=== PATIENT | male | born 1970 | race Caucasian/White ===

== ENCOUNTER 2017-12-30 12:04 | Emergency (ER) | payer OTHER ==
[2017-12-30] MEDS ORDERED: SODIUM CHLORIDE 1,000 ML IV STA (12:18)
--- NOTE | 2017-12-30 12:18 | PDOC ---
History of Present Illness - General Chief Complaint: Wound Stated Complaint: CYST TO RIGHT UPPER BACK Time Seen by Provider: 12/30/17 12:06 - History of Present Illness Initial Comments: 12/30/17 12:13 47 M with no PMH presents to ED with 1 week of R upper back swelling and pain. Pt states that he has had a cyst in his R upper back for a long time. Over the past week, it began to get swollen and red. He was started on abx 6 days ago, which he has been taking. Pt cannot recall name of abx. However, he states that the swelling and pain have not subsided. Yesterday, he noted that it began to drain spontaneously, purulent material. Pt denies F/C. Denies h/o abscesses anywhere else on his body. Pt was seen in Dr. Franco's office today. However, pt was sent to ED to have the abscess drained. I spoke with Dr. Franco, who states that he has informed Dr. Shah of pt, and Dr. Shah will be coming to drain the abscess at bedside. Past History - Past Medical History Allergies/Adverse Reactions: Allergies Allergy/AdvReac Type Severity Reaction Status Date / Time amoxicillin [From Augmentin] Allergy Intermediate Vomiting Verified 12/30/17 12: 06 clavulanic acid Allergy Intermediate Vomiting Verified 12/30/17 12:06 [From Augmentin] Home Medications: Ambulatory Orders Sulfamethoxazole/Trimethoprim [Bactrim Ds -] 1 tab PO BID 12/30/17 Review of Systems - Review of Systems Comments:: 12/30/17 12:16 "GENERAL/CONSTITUTIONAL: No fever or chills. No weakness. HEAD, EYES, EARS, NOSE AND THROAT: No change in vision. No ear pain or discharge. No sore throat. CARDIOVASCULAR: No chest pain or shortness of breath. RESPIRATORY: No cough, wheezing, or hemoptysis. GASTROINTESTINAL: No nausea, vomiting, diarrhea or constipation. GENITOURINARY: No dysuria, frequency, or change in urination. MUSCULOSKELETAL: No joint or muscle swelling or pain. No neck or back pain. SKIN: + R upper back abscess NEUROLOGIC: No headache, vertigo, loss of consciousness, or change in strength/ sensation. ENDOCRINE: No increased thirst. No abnormal weight change. HEMATOLOGIC/LYMPHATIC: No anemia, easy bleeding, or history of blood clots. ALLERGIC/IMMUNOLOGIC: No hives or skin allergy. " *Physical Exam - Physical Exam Comments: 12/30/17 12:16 "GENERAL: Awake, alert, and fully oriented, in no acute distress HEAD: No signs of trauma EYES: PERRLA, EOMI, sclera anicteric, conjunctiva clear ENT: Auricles normal inspection, hearing grossly normal, nares patent, oropharynx clear without exudates. Moist mucosa NECK: Nontender, no stepoffs, Normal ROM, supple, no lymphadenopathy, JVD, or masses LUNGS: Breath sounds equal, clear to auscultation bilaterally. No wheezes, and no crackles HEART: Regular rate and rhythm, normal S1 and S2, no murmurs, rubs or gallops ABDOMEN: Soft, nontender, normoactive bowel sounds. No guarding, no rebound. No masses EXTREMITIES: Normal range of motion, no edema. No clubbing or cyanosis. No cords, erythema, or tenderness NEUROLOGICAL: Cranial nerves II through XII intact. 5/5 strength and sensation in all extremities, Normal speech, normal gait, normal cerebellar function SKIN: R upper back with 4cm area of induration and fluctuance with surrounding erythema, small amount of purulent drainage expressed from center " Medical Decision Making - Medical Decision Making 12/30/17 12:17 47 M with infected cyst to R upper back. No s/s systemic illness or bacteremia. - Dr. Shah notified by Dr. Franco that pt needs I&D 12/30/17 13:19 Abscess drained at bedside by Dr. Shah. Pt reassessed - reports minimal pain. Repeat HR now 88. Pt is well appearing, with normal vitals. Clinically stable for DC at this time. I discussed the physical exam findings, ancillary test results and final diagnoses with the patient. I answered all of the patient's questions. The patient was satisfied with the care received and felt comfortable with the discharge plan and treatment plan. The patient agrees to follow up with the primary care physician within 24-72 hours. *DC/Admit/Observation/Transfer Diagnosis at time of Disposition: Abscess - Discharge Dispostion Condition at time of disposition: Stable - Referrals Referrals: Jefe Franco MD [Staff Physician] - - Patient Instructions Printed Discharge Instructions: DI for Skin Abscess Additional Instructions: Follow up with Dr. Franco within 1 week for a wound check. Continue taking the antibiotics as prescribed. If you experience worsening pain, redness, swelling, bleeding, fevers, or any other concerning symptoms, return to the ER immediately. - Post Discharge Activity - Attestations Physician Attestion: 12/30/17 13:25 I, Dr. Kranthi Steel MD, attest that this document has been prepared under my direction and personally reviewed by me in its entirety. I further attest, that it accurately reflects all work, treatment, procedures and medical decision -making performed by me.
[2017-12-30 12:24] VITALS: BP 125/93; PULSE 122; TEMP 99; BMI 30.1
[2017-12-30] MEDS ORDERED: LIDO 2%/EPI 1:200000 PRESRVFRE (20 ML SDVIAL) ONE (12:54)
--- NOTE | 2017-12-30 13:22 | PN ---
Progress Note (short form) - Note Progress Note: surgery pt seen and examined. full consult and procedure note dictated. 47m with large infected sebaceous cyst on right upper back. I&d done with 4cm incision and bacitracin pressure dressing. 40m pus expressed. finish po abx. remove dressing wednesday and shower into wound and reapply bacitracin dressing daily. f/u prn or in 3 months to consider formal cyst excision.
--- NOTE | 2017-12-30 13:47 | CONS ---
CONSULTATION/PROCEDURE NOTE DATE OF CONSULTATION AND OPERATION: 12/30/2017 REASON FOR CONSULTATION AND PROCEDURE: An infected right sebaceous cyst. BRIEF HISTORY: This is a 47-year-old male who presented to the [facility] complaining of a cyst on his right upper back, that had been there for many years, but recently became enlarged and inflamed. His medical doctor started him on antibiotic without improvement. He was sent in to the emergency room for surgical evaluation. He denies fever. PAST MEDICAL HISTORY: Negative. PAST SURGICAL HISTORY: Nil. HOME MEDICATIONS: Bactrim which is what he is taking only for this problem. SOCIAL HISTORY: Negative for alcohol. Negative for tobacco. FAMILY HISTORY: Negative for malignancy in the immediate family. REVIEW OF SYSTEMS: General: Denies fatigue or malaise. Cardiac: Denies chest pain or palpitations. Respiratory: Denies shortness of breath or wheeze. Gastrointestinal: No nausea or vomiting. Genitourinary: Denies dysuria. Musculoskeletal: Denies joint pain, joint swelling. Psychiatric: Denies anxiety, depression, or hearing voices. PHYSICAL EXAMINATION: General: This is a well-developed, well-nourished, 47-year-old male in no distress. HEENT: His head is normocephalic. His sclerae are anicteric. Neck: Supple. Chest: Clear. Abdomen: Soft. Extremities: No edema. Skin: He has a large area of fluctuance in the right upper back with a punctum in the middle consistent with an infected sebaceous cyst. LABORATORY DATA: There are no labs available. He remains afebrile. ASSESSMENT: This is a 47-year-old male with an infected sebaceous cyst on his right upper back. It measures approximately 4 cm in diameter. We will proceed with incision and drainage of this infected cyst. PROCEDURE: Incision and drainage of infected right upper back cyst with a 4-cm incision. SURGEON: Edward Shah DO AEROPLANE PILOT: None. ANESTHESIA: Local. BLOOD LOSS: Minimal. COMPLICATIONS: None. FINDINGS: Infected, purulent sebum 40 mL and a large cyst cavity. DRAINS: None. COMPLICATIONS: None. DESCRIPTION OF PROCEDURE: The patient was placed in a sitting position. The right upper back area was prepped and draped in sterile fashion. Next, 20 mL of lidocaine with epinephrine was used to anesthetize the overlying skin. A transverse incision was made over the cyst and then laterally increased in a hockey-stick fashion superiorly. A total of 4 cm in length was made. A large amount of infected sebum was expressed up to 40 mL of infected sebum. It had a foul odor to it. The cavity was completely cleaned out. Bacitracin pressure dressing was placed. Overall, the patient tolerated the procedure well. There were no complications. PLAN: The patient will remove his pressure dressing in 2 days. At which point, he will shower with soap and water going directly into the wound and then reapply a bacitracin dressing. He will follow with Dr. Franco in approximately 3 months' time to be evaluated for formal cyst removal. He will finish his antibiotic prescription given to him by his medical doctor. DO ORVILLE JOAQUIN/[id number]
== END 2017-12-30 13:45 | disposition home or self-care (01) ==
LOC: FER 12:04
PROC: 0J970ZZ Drainage of Back Subcutaneous Tissue and Fascia, Open Approach (ICD-10-PCS; principal; 2017-12-30)
DX: L02.212 Cutaneous abscess of back [any part, except buttock and flank] (principal); Z88.1 Allergy status to other antibiotic agents
CPT/HCPCS: 99282-25

== ENCOUNTER 2020-10-28 09:35 | Emergency (ER) | payer OTHER | END 2020-10-28 10:29 | disposition home or self-care (01) | LOC: JVIRT 09:35 | DX: U07.1 COVID-19 (principal) | CPT/HCPCS: C9803; G2012-GT; U0003 ==